=== PATIENT | male | born 1960 | race Caucasian/White ===

== ENCOUNTER 2018-09-03 11:54 | Emergency (ER) | payer BC, OTHER ==
[2018-09-03] MEDS ORDERED: LIDOCAINE 1% MPF 5 ML VIAL ONE (13:05)
[2018-09-03] MEDS ORDERED: BUPIVACAINE 0.5% PF 10 ML VIAL ONE (13:05)
[2018-09-03] MEDS ORDERED: HYDROCODONE/APAP 5/325 MG TAB ONE (13:55)
[2018-09-03] MEDS ORDERED: IBUPROFEN 400 MG TAB ONE (13:55)
--- NOTE | 2018-09-03 14:44 | RAD REPORT ---
EXAM DESCRIPTION: RAD - Hand Right 3 View - 09/03/2018 2:16 pm CLINICAL HISTORY: Right hand pain status post injury FINDINGS: Lateral view of the fifth digit is suboptimal secondary to overlying fingers. No gross fracture or dislocation is seen. If clinically indicated further evaluation with dedicated lateral x-ray of the fifth digit may be helpful
--- NOTE | 2018-09-03 15:31 | ER ---
Nurse's Notes [facility] Name: Ramon Campos Jr Age: 58 yrs Sex: Male : 1960 Arrival Date: 09/03/2018 Time: 11:57 Bed 16 Private MD: Diagnosis: Laceration without foreign body of finger without damage to nail-Right Fourth;Dislocation of proximal interphalangeal joint of right little finger Presentation: 09/03 12:20 Presenting complaint: Patient states: i missed the bottom step of the ladder and fell tw2 hit the ground, i tried to stop myself with my hand and my shoulder, my right pinkie finger is bent, i cannot straighten it. Transition of care: patient was not received from another setting of care. Onset of symptoms was September 03, 2018. Risk Assessment: Do you want to hurt yourself or someone else? Patient reports no desire to harm self or others. Initial Sepsis Screen: Does the patient meet any 2 criteria? No. Patient's initial sepsis screen is negative. Does the patient have a suspected source of infection? No. Patient's initial sepsis screen is negative. Care prior to arrival: None. 12:20 Method Of Arrival: Ambulatory tw2 12:20 Acuity: COLLINS 3 tw2 Triage Assessment: 12:23 General: Appears in no apparent distress. Behavior is calm, cooperative, appropriate tw2 for age. Pain: Complains of pain in dorsal aspect of distal phalanx of right little finger, dorsal aspect of middle phalanx of right little finger and dorsal aspect of proximal phalanx of right little finger. Musculoskeletal: RIGHT pinkie. Historical: - Allergies: 12:22 No Known Allergies; tw2 - Home Meds: 12:22 levothyroxine oral [Active]; tw2 - PMHx: 12:22 Hypothyroidism; tw2 - PSHx: 12:22 None; tw2 - Immunization history:: Adult Immunizations. - Social history:: Smoking status: . - Ebola Screening: : Patient denies travel to an Ebola-affected area in the 21 days before illness onset. Screenin:00 Abuse screen: Denies threats or abuse. Denies injuries from another. Nutritional ph screening: No deficits noted. Tuberculosis screening: No symptoms or risk factors identified. Fall Risk None identified. Assessment: 12:45 General: Appears in no apparent distress. comfortable, well groomed, Behavior is calm, ph cooperative, appropriate for age. Pain: Complains of pain in palmar aspect of middle phalanx of right little finger and palmar aspect of middle phalanx of right ring finger. Neuro: Level of Consciousness is awake, alert, obeys commands, Oriented to person, place, time, situation. Cardiovascular: Capillary refill < 3 seconds in bilateral fingers Patient's skin is warm and dry. Respiratory: Airway is patent Respiratory effort is even, unlabored, Respiratory pattern is regular, symmetrical. Derm: Skin is healthy with good turgor, Skin is pink, warm \T\ dry. Musculoskeletal: Range of motion: limited in PIP of right little finger Bony deformity noted of palmar aspect of middle phalanx of right little finger Swelling present in right hand. 12:45 Injury Description: Laceration sustained to palmar aspect of middle phalanx of right ph ring finger is 0.5 to 2.5 cm long, a small amount of bleeding noted at this time. 14:00 Reassessment: Patient appears in no apparent distress at this time. Patient and/or ph family updated on plan of care and expected duration. Pain level reassessed. Patient is alert, oriented x 3, equal unlabored respirations, skin warm/dry/pink. 15:30 Reassessment: Patient appears in no apparent distress at this time. Patient and/or ph family updated on plan of care and expected duration. Pain level reassessed. Patient is alert, oriented x 3, equal unlabored respirations, skin warm/dry/pink. corrosion technician at bedside to place splint. Vital Signs: 12:22 BP 122 / 90; Pulse 73; Resp 17; Temp 96.9(TE); Pulse Ox 99% on R/A; Weight 108.86 kg tw2 (R); Pain 3/10; 14:30 BP 126 / 84; Pulse 72; Resp 16; Temp 98.2; Pulse Ox 99% on R/A; ph ED Course: 11:57 Patient arrived in ED. as 12:21 Triage completed. tw2 12:23 Arm band placed on. tw2 12:34 Jim Rendon PA is PHCP. cp 12:34 Juan Antonio Hawthorne MD is Attending Physician. cp 12:41 Lissette Vasquez RN is Primary Nurse. ph 13:00 Patient has correct armband on for positive identification. Bed in low position. Call ph light in reach. Side rails up X 1. Pulse ox on. NIBP on. 13:15 Radiology exam delayed due to PA wants to manipulate finger prior to xray. jr1 14:08 X-ray completed. Portable x-ray completed in exam room. jr1 14:10 XRAY Hand RIGHT 3 View In Process Unspecified. EDMS 15:24 Aluminum finger splint applied to little finger right hand. em1 15:28 Jose Cruz Dias MD is Referral Physician. cp 15:45 No provider procedures requiring assistance completed. Patient did not have IV access ph during this emergency room visit. Administered Medications: 13:44 Drug: Marcaine (0.5 %) 5 ml Volume: 10 ml; Route: Infiltration; ph 14:30 Follow up: Response: No adverse reaction; Pain is decreased ph 13:44 Drug: Ibuprofen 800 mg Route: PO; ph 15:00 Follow up: Response: No adverse reaction ph 13:45 Drug: Lidocaine (1 %) 5 mg Route: Infiltration; ph 14:30 Follow up: Response: No adverse reaction; Pain is decreased ph 19:56 Not Given (Patient Refused): HYDROcodone-acetaminophen 5 mg-325 mg 1 tabs PO once ph Outcome: 15:30 Discharge ordered by MD. cp 15:49 Patient left the ED. ph 15:49 Discharged to home ambulatory, with significant other. ph 15:49 Condition: good 15:49 Discharge instructions given to patient, significant other, Instructed on discharge instructions, follow up and referral plans. medication usage, Demonstrated understanding of instructions, follow-up care. Signatures: Dispatcher [employer] EDPR Andreina Crews jr1 Kusum Aburto Eric em1 Lissette Vasquez, RN RN ph Jim Rendon PA PA cp Wise, Tara, RN RN tw2
--- NOTE | 2018-09-03 15:31 | EDPHYS ---
Physician Documentation [facility] Name: Ramon Campos Jr Age: 58 yrs Sex: Male : 1960 Arrival Date: 09/03/2018 Time: 11:57 Bed 16 Private MD: ED Physician Juan Antonio Hawthorne HPI: 09/03 13:00 This 58 yrs old Male presents to ER via Ambulatory with complaints of Fall cp Injury. 13:00 Details of fall: The patient fell from a height, while descending from ladder. Onset: cp The symptoms/episode began/occurred today. Associated injuries: The patient sustained right hand. Historical: - Allergies: 12:22 No Known Allergies; tw2 - Home Meds: 12:22 levothyroxine oral [Active]; tw2 - PMHx: 12:22 Hypothyroidism; tw2 - PSHx: 12:22 None; tw2 - Immunization history:: Adult Immunizations. - Social history:: Smoking status: . - Ebola Screening: : Patient denies travel to an Ebola-affected area in the 21 days before illness onset. ROS: 13:05 Constitutional: Negative for body aches, chills, fever, poor PO intake. cp 13:05 Eyes: Negative for injury, pain, redness, and discharge. cp 13:05 Neck: Negative for pain with movement, pain at rest, stiffness. 13:05 Cardiovascular: Negative for chest pain. 13:05 Respiratory: Negative for cough, shortness of breath, wheezing. 13:05 Abdomen/GI: Negative for abdominal pain, vomiting, diarrhea, constipation. 13:05 Back: Negative for pain at rest, pain with movement, radiated pain. 13:05 MS/extremity: Positive for injury or acute deformity, decreased range of motion, laceration, pain, of the right hand. 13:05 Neuro: Negative for altered mental status, headache, loss of consciousness, syncope. 13:05 All other systems are negative. Exam: 13:15 Constitutional: The patient appears in no acute distress, alert, awake, non-toxic, well cp developed, well nourished. 13:15 Head/Face: Normocephalic, atraumatic. cp 13:15 Eyes: Periorbital structures: appear normal, Pupils: equal, round, and reactive to light and accomodation, Extraocular movements: intact throughout, Conjunctiva: normal, no exudate, no injection, Lids and lashes: appear normal, bilaterally. 13:15 ENT: External ear(s): are unremarkable, Ear canal(s): are normal, clear, TM's: dullness, bilaterally, Nose: is normal, Mouth: Lips: moist, Oral mucosa: moist, Posterior pharynx: is normal, airway is patent, no erythema, no exudate. 13:15 Neck: C-spine: vertebral tenderness, is not appreciated, crepitus, is not appreciated, ROM/movement: is normal, is supple, without pain, no range of motions limitations, no nuchal rigidity. 13:15 Chest/axilla: Inspection: normal, Palpation: is normal, no crepitus, no tenderness. 13:15 Cardiovascular: Rate: normal, Rhythm: regular. 13:15 Respiratory: the patient does not display signs of respiratory distress, Respirations: normal, no use of accessory muscles, no retractions, no splinting, no tachypnea, labored breathing, is not present, Breath sounds: are clear throughout, no decreased breath sounds, no stridor, no wheezing. 13:15 Abdomen/GI: Inspection: abdomen appears normal, Palpation: abdomen is soft and non-tender, in all quadrants. 13:15 Musculoskeletal/extremity: Extremities: grossly normal except: noted in the PIP joint of right little finger: decreased ROM, deformity, swelling, tenderness, Perfusion: the extremity is normally perfused throughout, Sensation intact. 13:15 Skin: injury, laceration(s), of the palmar aspect of distal interphalangeal joint of right ring finger, that can be described as clean, linear, with mild bleeding. Vital Signs: 12:22 BP 122 / 90; Pulse 73; Resp 17; Temp 96.9(TE); Pulse Ox 99% on R/A; Weight 108.86 kg tw2 (R); Pain 3/10; 14:30 BP 126 / 84; Pulse 72; Resp 16; Temp 98.2; Pulse Ox 99% on R/A; ph Procedures: 14:45 Reduction: of the PIP joint of right little finger, using manipulation, Immobilized cp with finger splint, Patient tolerated well. Post reduction film - reveals normal alignment. Laceration: 14:55 Wound Repair of 2cm ( 0.8in ) subcutaneous laceration to michelle aspect of distal cp interphalangeal joint right fourth finger. Linear shaped.. Distal neuro/vascular/tendon intact. Anesthesia: Wound infiltrated with 2 mls of 1% lidocaine, Local anesthetic administered with Lido/Marcaine. Wound prep: Moderate cleansing by me, Wound irrigation by me. Skin closed with 3 4-0 Prolene using simple sutures and sterile technique. Dressed with Bacitracin, tube gauze, aluminum splint. Patient tolerated well. MDM: 12:35 Patient medically screened. cp 15:30 Data reviewed: vital signs, nurses notes, radiologic studies, plain films. cp 15:30 Differential diagnosis: contusion, fracture, laceration, multiple trauma. Test cp interpretation: by ED physician or midlevel provider: plain radiologic studies. Counseling: I had a detailed discussion with the patient and/or guardian regarding: the historical points, exam findings, and any diagnostic results supporting the discharge/admit diagnosis, radiology results, the need for outpatient follow up, for definitive care, a hand specialist, to return to the emergency department if symptoms worsen or persist or if there are any questions or concerns that arise at home. Response to treatment: the patient's symptoms have markedly improved after treatment, and as a result, I will discharge patient. 09/03 12:49 Order name: XRAY Hand RIGHT 3 View; Complete Time: 14:54 cp 09/03 14:54 Interpretation: Report reviewed. cp 09/03 14:55 Order name: Splint - Finger; Complete Time: 15:26 cp Administered Medications: 13:44 Drug: Marcaine (0.5 %) 5 ml Volume: 10 ml; Route: Infiltration; ph 14:30 Follow up: Response: No adverse reaction; Pain is decreased ph 13:44 Drug: Ibuprofen 800 mg Route: PO; ph 15:00 Follow up: Response: No adverse reaction ph 13:45 Drug: Lidocaine (1 %) 5 mg Route: Infiltration; ph 14:30 Follow up: Response: No adverse reaction; Pain is decreased ph 19:56 Not Given (Patient Refused): HYDROcodone-acetaminophen 5 mg-325 mg 1 tabs PO once ph Disposition: 16:26 Co-signature as Attending Physician, Juan Antonio Hawthorne MD I agree with the assessment and kdr plan of care. Disposition: 09/03/18 15:30 Discharged to Home. Impression: Laceration without foreign body of finger without damage to nail - Right Fourth, Dislocation of proximal interphalangeal joint of right little finger. - Condition is Stable. - Discharge Instructions: Finger or Thumb Dislocation, Laceration Care, Adult, Sutured Wound Care. - Family Work Release, Medication Reconciliation Form, Thank You Letter, Antibiotic Education, Prescription Opioid Use form. - Follow up: Jose Cruz Dias MD; When: 1 - 2 days; Reason: Recheck today's complaints. - Problem is new. - Symptoms have improved. Signatures: Dispatcher [employer] EDMS Juan Antonio Hawthorne MD MD [facility] Lissette Vasquez RN RN ph Jim Rendon PA PA cp Lynn Abreu RN RN tw2 Corrections: (The following items were deleted from the chart) 15:49 15:30 09/03/2018 15:30 Discharged to Home. Impression: Laceration without foreign body ph of finger without damage to nail - Right Fourth; Dislocation of proximal interphalangeal joint of right little finger. Condition is Stable. Forms are Medication Reconciliation Form, Thank You Letter, Antibiotic Education, Prescription Opioid Use. Follow up: Jose Cruz Dias; When: 1 - 2 days; Reason: Recheck today's complaints. Problem is new. Symptoms have improved. cp
== END 2018-09-03 15:49 | disposition home or self-care (01) ==
LOC: ER 11:54
PROC: 0JQJ0ZZ Repair Right Hand Subcutaneous Tissue and Fascia, Open Approach (ICD-10-PCS; principal; 2018-09-03)
DX: S63.286A Dislocation of proximal interphalangeal joint of right little finger, initial encounter (principal); S61.214A Laceration without foreign body of right ring finger without damage to nail, initial encounter; W11.XXXA Fall on and from ladder, initial encounter; E03.9 Hypothyroidism, unspecified
CPT/HCPCS: 99284